=== PATIENT | female | born 1945 ===

== ENCOUNTER 2017-11-21 11:38 | Outpatient (CLI) | payer OTHER | END 2017-11-21 11:39 | disposition home or self-care (01) | LOC: BICRAD 11:38 | PROVIDERS: ATTEND Internal Medicine Gastroenterology | DX: K21.9 Gastro-esophageal reflux disease without esophagitis (principal); R19.8 Other specified symptoms and signs involving the digestive system and abdomen; Z86.010 Personal history of colon polyps | CPT/HCPCS: 74018 ==